=== PATIENT | male | born 2000 | race Caucasian/White ===

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

== ENCOUNTER 2019-01-14 15:33 | Emergency (ER) | payer SELFPAY | END 2019-01-14 16:15 | disposition home or self-care (01) | LOC: ED 15:33 | DX: K08.89 Other specified disorders of teeth and supporting structures (principal) ==